=== PATIENT | female | born 1995 | race Caucasian/White ===

== ENCOUNTER → 2021-07-04 13:15 | Outpatient (CLI) | payer OTHER, SELFPAY ==
--- NOTE | 2021-07-04 | DI.RAD.S_ITS ---
PROCEDURE: XR THORACIC SPINE 2V INDICATIONS: Segmental and somatic dysfunction, pain TECHNIQUE: Two views of the thoracic spine were acquired. COMPARISON: None. FINDINGS: Bones: Normal vertebral body height and alignment. No suspicious lytic or blastic osseous lesion. No significant degenerative change. Soft tissues: No paravertebral stripe thickening. IMPRESSION: Unremarkable study with no significant degenerative change or other pain generating lesion identified. Dictated by: Vj Stephens M.D. on 07/04/2021 at 14:25 Approved by: Vj Stephens M.D. on 07/04/2021 at 14:26
--- NOTE | 2021-07-04 | DI.RAD.S_ITS ---
PROCEDURE: XR CERVICAL SPINE 2V OR 3V INDICATIONS: Segmental and somatic dysfunction of cervical maximilian TECHNIQUE: 3 view(s) of the cervical spine were acquired. COMPARISON: None. FINDINGS: There is straightening and reversal of the usual cervical lordosis centered at C4. No listhesis. Vertebral body heights maintained. No significant degenerative changes. IMPRESSION: Straightening and reversal of the usual cervical lordosis. This may be due to muscle spasm. Otherwise unremarkable study. Dictated by: Vj Stephens M.D. on 07/04/2021 at 14:27 Approved by: Vj Stephens M.D. on 07/04/2021 at 14:28
--- NOTE | 2021-07-04 | DI.RAD.S_ITS ---
PROCEDURE: XR LUMBAR SPINE 2-3V INDICATIONS: Segmental and somatic dysfunction, pain TECHNIQUE: 2 views of the lumbar spine were acquired. COMPARISON: None. FINDINGS: There are 5 [id number]-fhxeyle lumbar type vertebral bodies of normal height and alignment. No pars defect identified. Mild disc height loss from L3-L4 through L5-S1 with associated degenerative endplate change and facet hypertrophy. IMPRESSION: Ipdq-ey-ajitfrtx lumbar spine degenerative changes. Consider an MRI for further evaluation Dictated by: Vj Stephens M.D. on 07/04/2021 at 14:26 Approved by: Vj Stephens M.D. on 07/04/2021 at 14:27
== END ==
PROVIDERS: Referring Provider Chiropractor; Visit Provider Chiropractor
DX: M99.01 Segmental and somatic dysfunction of cervical region (principal); M99.02 Segmental and somatic dysfunction of thoracic region; M99.03 Segmental and somatic dysfunction of lumbar region; M99.04 Segmental and somatic dysfunction of sacral region; M47.816 Spondylosis without myelopathy or radiculopathy, lumbar region; M47.817 Spondylosis without myelopathy or radiculopathy, lumbosacral region
CPT/HCPCS: 72040; 72070; 72100